=== PATIENT | female | born 1960 | race Caucasian/White ===

== ENCOUNTER → 2022-08-23 | Day surgery (SDC) | payer MEDICARE, OTHER ==
[~2022-08-23] VITALS: Ht 167.6 cm; Wt 122.5 kg
[~2022-08-23] MED LIST: ALBUTEROL SULFAT4 MG PO; CARAFATE1 GM PO; COZAAR100 MG PO; FLUOXETINE HCL20 MG PO; GABAPENTIN800 MG PO; HYDROCHLOROTH12.5 MG PO; MELOXICAM15 MG PO; METFORMIN HCL500 M3 PO; PRAMIPEXOLE DI1.5 MG PO; PROTONIX 40MG T40 MG PO; SIMVASTATIN10 MG PO; SYMBICORT 16010.2 GM INH; TIZANIDINE HCL4 MG PO; TRELEGY ELLIPT1 EAC1 INH; VITAMIN D21250 MCG PO
== END | disposition home or self-care (01) ==
LOC: FAS 09:59
DX: K44.9 Diaphragmatic hernia without obstruction or gangrene (principal); K27.9 Peptic ulcer, site unspecified, unspecified as acute or chronic, without hemorrhage or perforation; K29.70 Gastritis, unspecified, without bleeding
CPT/HCPCS: J2250; J2704; J7120